=== PATIENT | male | born 2000 | race Caucasian/White ===

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

== ENCOUNTER 2019-06-02 00:20 | Emergency (ER) | payer BC ==
[~2019-06-02] VITALS: Ht 177.8 cm; Wt 109.1 kg
[2019-06-02 00:45] VITALS: TEMP 98.5
[2019-06-02] MEDS ORDERED: ZOFRAN ODT4 MG PO (02:11)
[2019-06-02 02:26] VITALS: BP 126/74; PULSE 78
== END 2019-06-02 02:28 | disposition home or self-care (01) ==
LOC: COL.ER 00:20
DX: R11.2 Nausea with vomiting, unspecified (principal)